=== PATIENT | female | born 1980 | race Caucasian/White ===

== ENCOUNTER 2023-05-31 07:29 | Outpatient (CLI) | payer BC ==
[2023-05-31 07:56] LABS: BASOPHILS % (AUTO) 1.9 %; EOSINOPHILS % (AUTO) 5.7 %; HCT - HEMATOCRIT 31.2 % (37.0-47.0); HGB - HEMOGLOBIN 10.6 g/dL (12.0-16.0); LYMPHOCYTES % (AUTO) 19.3 %; MEAN CORPUSCULAR HEMOGLOBIN 32.1 pg (27.0-31.0); MEAN CORPUSCULAR VOLUME 94.5 fL (81.0-99.0); MEAN PLATELET VOLUME 8.7 fL (7.9-10.8); MONOCYTES % (AUTO) 4.2 %; NEUTROPHILS % (AUTO) 67.5 %; PLT - PLATELET COUNT 197 10^3/uL (130-450); RED CELL DISTRIBUTION WIDTH 14.9 % (12.0-15.0); WHITE BLOOD COUNT 2.1 x10^3/uL (4.8-10.8)
[2023-05-31 08:05] LABS: ABNORMAL LYMPHS % (MANUAL) 0 %; BAND NEUTROPHILS % (MANUAL) 0 %
[2023-05-31 08:22] LABS: ALBUMIN 3.7 g/dL (3.2-5.5); ALBUMIN/GLOBULIN RATIO 1.7 (1.0-2.2); BILIRUBIN,TOTAL 0.2 mg/dL (0.2-1.0); CALCIUM 8.8 mg/dL (8.5-10.3); CREATININE 1.1 mg/dL (0.6-1.3); MAGNESIUM 1.9 mg/dL (1.7-2.3); PHOSPHORUS 3.4 mg/dL (3.7-7.2); TOTAL PROTEIN 5.9 g/dL (6.4-8.9)
[2023-05-31 09:20] LABS: BILIRUBIN,URINE NEGATIVE (NEGATIVE); GLUCOSE, URINE (UA) NEGATIVE (NEGATIVE); KETONES,URINE (UA) NEGATIVE (NEGATIVE); LEUKOCYTE ESTERASE, URINE TRACE (NEGATIVE); NITRITE,URINE NEGATIVE (NEGATIVE); OCCULT BLOOD,URINE NEGATIVE (NEGATIVE); PROTEIN,URINE NEGATIVE (NEGATIVE); UROBILINOGEN,URINE 0.2 (NORMAL) E.U./dL (NORMAL)
[2023-05-31 09:24] LABS: CLARITY,URINE CLEAR (CLEAR)
[2023-05-31 09:59] LABS: BASOPHILS % (MANUAL) 1 %; DIFFERENTIAL COMMENT MANUAL DIFFERENTIAL; LYMPHOCYTES # (MANUAL) 0.4 10^3/uL (1.5-3.5); LYMPHOCYTES % (MANUAL) 17 %; MONOCYTES # (MANUAL) 0.1 10^3/uL (0.0-1.0); NEUTROPHILS # (MANUAL) 1.5 10^3/uL (1.5-6.6); REACTIVE LYMPHS % (MANUAL) 4 %
[2023-05-31 10:27] LABS: BACTERIA,URINE None Seen /HPF (None Seen); RBC,URINE None Seen /HPF (0-5); SQUAMOUS EPITHELIAL CELL,UR NONE SEEN (<= Few)
== END 2023-05-31 07:30 | disposition home or self-care (01) ==
LOC: LAB 07:29
PROVIDERS: ATTEND Internal Medicine Medical Oncology
DX: Z51.11 Encounter for antineoplastic chemotherapy (principal); C50.312 Malignant neoplasm of lower-inner quadrant of left female breast; Z51.81 Encounter for therapeutic drug level monitoring; Z79.899 Other long term (current) drug therapy; D70.9 Neutropenia, unspecified
CPT/HCPCS: 36415; 80053; 81001; 81599; 82610; 82977; 83615; 83735; 84100; 85025